=== PATIENT | male | born 1980 | race Caucasian/White ===

== ENCOUNTER 2024-12-05 11:14 | Emergency (ER) | payer SELFPAY ==
[2024-12-05 12:03] LABS: #Basophils 0.03 10x3/uL (0.0-0.2); #Eosinophils 0.08 10x3/uL (0.0-0.7); #Monocytes 0.53 10x3/uL (0.11-0.59); #Neutrophils 4.92 10x3/uL (1.40-6.50); %Basophils 0.4 % (0.0-1.0); %Eosinophils 1.1 % (0.0-10.0); %Lymphocytes 25.9 % (21.0-51.0); %Monocytes 7.0 % (0.0-10.0); %Neutrophils 65.3 % (42.0-75.0); Hematocrit 40.8 % (42.0-52.0); Hemoglobin 13.4 g/dL (14.0-18.0); Mean Corpuscular Hemoglobin 30.3 pg (27.0-31.0); Mean Corpuscular Volume 92.3 fL (78.0-98.0); Platelet Count 224 10x3/uL (130-400); Red Blood Cell (RBC) Count 4.42 mill/uL (4.70-6.10); White Blood Cell (WBC) Count 7.53 10x3/uL (4.8-10.8)
[2024-12-05 12:33] LABS: ALT (SGPT) 11 U/L (Less than 45); AST (SGOT) 16 U/L (11-34); Albumin 4.5 g/dL (3.1-4.5); Alkaline Phosphatase 104 U/L (40-110); Anion Gap 13 mmol/L (10-20); BUN (Urea Nitrogen) 6 mg/dL (8.9-20.6); Bilirubin, Total 0.3 mg/dL (0.3-1.2); Calc. Creatinine Clearance 0 mL/min (70-130); Calcium 9.0 mg/dL (7.8-10.44); Carbon Dioxide 25 mmol/L (22-29); Chloride 106 mmol/L (98-107); Globulin 3.0 g/dL (2.4-3.5); Glucose 120 mg/dL (70-105); Lipase 14 U/L (8-78); Potassium 3.5 mmol/L (3.5-5.1); Sodium 140 mmol/L (136-145)
[2024-12-05 12:38] LABS: Bacteria/HPF None Seen HPF (None Seen); CAUTI Indications for Culture Pelvic or flank pain; Glucose, Urine (Dipstick) Normal (Negative); Leukocyte Negative Leu/uL (Negative); Protein, Urine (Dipstick) Negative (Neg-Trace); RBC/HPF None Seen HPF (0-3); Specific Gravity, Urine 1.002 (1.002-1.036); WBC/HPF None Seen HPF (0-3)
[2024-12-05 12:47] LABS: Urine Culture Reflex No No
== END 2024-12-05 14:25 | disposition home or self-care (01) ==
LOC: ERS 11:14
DX: T47.6X1A Poisoning by antidiarrheal drugs, accidental (unintentional), initial encounter (principal); R11.2 Nausea with vomiting, unspecified; R19.7 Diarrhea, unspecified; Z55.6 Problems related to health literacy
CPT/HCPCS: 36415; 80053; 81001; 83690; 85025; 93005; 99284